=== PATIENT | female | born 1975 | race Two or more races ===

== ENCOUNTER → 2024-10-14 | Outpatient (BNVA) | payer MEDICAID, SELFPAY | END | disposition home or self-care (01) | PROVIDERS: PCP Nurse Practitioner Family; Referring Provider Nurse Practitioner Family; Visit Provider Nurse Practitioner Family | DX: N93.9 Abnormal uterine and vaginal bleeding, unspecified (principal); Z85.42 Personal history of malignant neoplasm of other parts of uterus | CPT/HCPCS: 99214 ==

== ENCOUNTER 2024-11-02 10:36 | Outpatient (AMB) | payer MEDICAID, SELFPAY ==
[2024-11-02 10:53] VITALS: BP 131/81; PULSE 61; RESP 14; TEMP 36.6; O2SAT 95; BMI 36.9
--- NOTE | 2024-11-02 10:53 | AMB.GYNCLNOT ---
Vital Signs 11/02/24 10:53 Height 1.58 m Height Method Stated Weight 92.249 kg Weight Measurement Method Standing Scale BMI 36.9 BP 131/81 H Blood Pressure Source Automatic Cuff Blood Pressure Location Left Upper Arm Position Sitting Respiration 14 Pulse 61 Pulse Source Monitor Temp 97.9 F Temp Source Oral Pulse Oximetry (%) 95 Oxygen Delivery Method Room Air Allergies/Home Meds Allergies & Medications Allergies No Known Allergies Allergy (Verified 11/02/24 10:55) Medication Reconciliation blood sugar diagnostic (True Metrix Glucose Test Strip) #100 ea 07/16/24 [Rx Confirmed 11/02/24] lancets 28 gauge (Comfort EZ Lancets) #100 ea 07/16/24 [Rx Confirmed 11/02/24] atorvastatin 10 mg tablet 10 mg PO QDAY #90 tabs 10/13/24 [Rx Confirmed 11/02/24] enalapril maleate 10 mg tablet 10 mg PO QDAY #90 tabs 10/13/24 [Rx Confirmed 11/02/24] ezetimibe 10 mg tablet 10 mg PO QDAY #90 tabs 10/13/24 [Rx Confirmed 11/02/24] hydrochlorothiazide 12.5 mg capsule 12.5 mg PO QAM #90 caps 10/13/24 [Rx Confirmed 11/02/24] sitagliptin phosphate 100 mg tablet (Januvia) 100 mg PO QDAY #90 tabs 10/13/24 [Rx Confirmed 11/02/24] Intake Visit Data Collection New Patient or Established: Established Patient (seen at [facility] within 3 years) Reason for Visit:: Pelvic Exam Seen by Clinical Staff ONLY (RN/MA): No Teletype Clerk Required: Yes Teletype Clerk's name/title: Jessica Fierro Do You Feel Safe at Home: Yes Authorities Contacted: N/A PCP or OBGYN visit in last 3 months: No Hx Now: No Are you currently on any form of Control: No Pain Present Currently: No Pain Scale Used: [place]/Numerical Pain scale:: 0 Smoking Status Smoking Status: Never smoker 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 1. Little interest or pleasure in doing things: not at all 2. Feeling down, depressed, or hopeless: not at all Total score: 0 PHQ-9 3. Trouble falling or staying asleep, or sleeping too much: Not at all 4. Feeling tired or having little energy: Not at all 5. Poor appetite or overeating: Not at all 6. Feeling bad about yourself - or that you are a failure or have let yourself or your family down: Not at all 7. Trouble concentrating on things, such as reading the newspaper or watching television: Not at all 8. Moving or speaking so slowly that other people could have noticed? - Or the opposite - being so fidgety or restless that you have been moving around a lot more than usual: not at all 9. Thoughts that you would be better off or of hurting yourself in some way: Not at all Total score: 0 Source: Developed by Drs. Phillip Muñoz, Prudence Regan, Kwame Hoffman and colleagues, with an educational loren from [employer] (T/A). Depression screen completed yes Social History Living Situation History Marital Status: Lives With: Family Housing: House Tobacco History Smoking Status: Never smoker Second Hand Smoke Exposure: No Alcohol History Alcohol Intake: Never Substance Use History Substance Use: PT DENIES SUBSTANCE USE. Domestic Abuse History Do You Feel Safe at Home: Yes Past Medical History Past Medical History Have you ever been diagnosed with any of the following: Neurological Problems Cerebrovascular Accident (CVA): No Transient Ischemic Attacks (TIA): No Dementia: No Alzheimer's Disease: No Parkinson's Disease: No Brain Tumor: No Meningitis: No Seizures: No Cardiology Problems Myocardial Infarction: No Cardiac Arrhythmia: No Atrial Fibrillation: No Angina: No Heart Murmur: No Coronary Artery Disease: No Atherosclerotic Heart Disease: No Peripheral Vascular Disease: No Hypercholesterolemia: Yes Aneurysm: No Congestive Heart Failure: No Congenital Heart Disease: No Valvular Heart Disease: No Rheumatic Fever: No Cardiomyopathy: No Edema: No Pericarditis: No Hypertension: Yes Hypotension: No Respiratory Problems Chronic Obstructive Pulmonary Disease (COPD): No Asthma: No Bronchitis: No Emphysema: No Pneumonia: No Pulmonary Fibrosis: No Tuberculosis: No Pulmonary Embolism: No Pulmonary Edema: No Sleep Apnea: No CPAP Dependent: No Respiratory Aspiration: No Dyspnea: No Orthopnea: No Hx Cough: No Cough: No Wheezing: No Chest Deformities: No Smoking: No Smoking Cessation Counseling: No Smoking Exposure: No Tobacco Use: No Clubbing: No Exposure to Respiratory Irritants: No Intubation: No Stomache/Intestinal Problems Liver Cancer: No Hepatitis: No Cirrhosis: No Pancreatic Cancer: No Pancreatitis: No Celiac Disease: No Gall Bladder Disease: No Gastrointestinal Bleed: No Esophageal Varices: No Genital/Urinary Problems Chronic Kidney Disease: No Renal Disease: No Kidney Stones: No Polycystic Kidney Disease: No Neurogenic Bladder: No Inguinal Hernia: No Dialysis: No Reproductive Problems Breast Cancer: No Endometriosis: No Fibroids: No Genital Herpes: No Gonorrhea: No Pelvic Inflammatory Disease: No Polycystic Ovarian Syndrome: No Previous Pregnancies: Yes Syphilis: No Musculoskeletal Problems Muscular Dystrophy: No Myasthenia Gravis: No Marfan's Syndrome: No Bone Cancer: No Head,Eye,Nose,Throat Problems Cataracts: No Glaucoma: No Blind: No Endocrine Problems Diabetes Mellitus Type 1: No Diabetes Mellitus Type 2: Yes Hypoglycemia: No Andre's Syndrome: No [place]'s Disease: No Thyroid Cancer: No Parathyroid Disease: No Pituitary Disease: No Systemic Lupus Erythematosus: No Syndrome of Inappropriate Antidiuretic Hormone: No Adrenal Disease: No Graves' Disease: No Blood Problems Anemia: No Leukemia: No Hemophilia: No Thalassemia: No Sickle Cell Disease: No Clotting Problems: No Psychologic Problems Schizophrenia: No Recreational Drug Use: No Bipolar Disorder: No Depression: No Anxiety: No Behavior Problems: No Self-Mutilation: No Attention Deficit Disorder: No Attention Deficit Hyperactivity Disorder: No Depression: No Post Traumatic Stress Disorder: No Eating Disorder: No Other Problems Hospitalization: No Autoimmune Disease: No Down Syndrome: No Autism: No Developmental Delay: No Cosmetic Surgery: No Shingles: No Falls: No Blood Transfusions: No Blood Transfusion Reaction: No Anesthesia Reactions: No Organ Transplant: No Chemotherapy: No Cancer: Yes Surgical History Hysterectomy: Yes History of Present Illness HPI Narrative 49-year-old female presents for a follow-up visit with a history of type 2 diabetes mellitus, hyperlipidemia, hypertension, and 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 She has no new complaints today. The patient has a history of endometrial adenocarcinoma for which she underwent surgery in 2020. She denies any bleeding, pain, or bulging sensations in the past year and confirms she is no longer seeing the specialist doctor. Patient reports a change in color and sensation around the area of a previous breast lesion. She describes feeling pulling and itching in the area, which was previously biopsied and treated for infection. The patient confirms the infection is healing and was advised to keep the area moist to aid in the healing process. 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 Review of systems reveals no genitourinary issues such as bleeding, pain, or bulging. She reports no bladder problems or constipation. The patient notes a change of color in the breast area and a feeling of pulling and itching in the breast area. Review of Systems Review of Systems Systems Reviewed: All systems reviewed, normal except as documented Exam General Limitations: no limitations General Appearance: alert, in no apparent distress, comfortable, cooperative, healthy appearing, well developed and well groomed Head Head exam: atraumatic, normocephalic and normal inspection Eye Eye exam: Present normal appearance, PERRL and EOMI ENT ENT exam: Present normal exam, normal oropharynx and mucous membranes moist Neck Neck exam: Present normal inspection, full ROM and trachea midline Chest Chest inspection: Present normal inspection, symmetric chest wall rise and other (Right Breast area of healing induration/ abscess noted) Resp Respiratory exam: Present normal lung sounds bilaterally Card Cardiovascular exam: Present regular rate, normal rhythm and normal heart sounds Abdominal Abdominal exam: Present soft and normal bowel sounds External exam: Present normal external exam Speculum exam: Present normal speculum exam Bimanual exam: Present other (BImanual Exam c/w hysterectomy status. No pelvic or adenexal masses palpated) Extremities Extremities exam: Present normal inspection and full ROM Back Back exam: Present normal inspection and full ROM Neuro Neurological exam: Present alert, oriented X3 and CN II-XII intact Psych Psychiatric exam: Present normal affect and normal mood Skin Skin exam: Present warm, dry, intact and normal color Assessment & Plan Diagnosis / Problem List (1) Adenocarcinoma of endometrium, stage 2: Status: Resolved Plan: - 49-year-old female with history of endometrial adenocarcinoma. - Hysterectomy in 2020 due to osseous metastatic disease. - No longer following up with specialist. - No new complaints reported. - Pelvic exam normal. - Continue routine follow-up. - Monitor for signs of recurrence (bleeding or pain). (2) Hyperlipidemia: Status: Chronic Qualifiers: Hyperlipidemia type: unspecified Qualified Code(s): E78.5 - Hyperlipidemia, unspecified Plan: Continue care w/PCP (3) Diabetes mellitus type 2, controlled, without complications: Status: Chronic Qualifiers: Diabetes mellitus meterman insulin use: without prison use Qualified Code(s): E11.9 - Type 2 diabetes mellitus without complications Plan: Continue care w/PCP (4) Abscess of right breast: Status: Acute Plan: - Change in color of previously biopsied breast lesion reported. - Area appears improved on examination. - Assessed as infection rather than cancer, healing noted. - Normal healing sensations (pulling and itching) experienced. - Keep affected area moist to promote healing. - Monitor for changes or worsening symptoms. - Continue with previously scheduled follow-ups. Additional Plan Follow Up: 1 Year (Endometrial cancer surveillance) Office Procedures OB Clinic LOC & Office Proc's Nursing/Assessment Patient Status: Initial/New Patient OB Clinic Nursing Assessment: Medication Reconciliation, Update PMH in EMR and Vital Signs OB Clinic Coordination of Care: Complex Care and Chronic Disease 1-5, Consent,records obtained, informed consent, Education Simp Pt/Fam and Staff clarify orders Miscellaneous Interventions: Pelvic no cultures New Patient Charge New Patient Point Assignment: [id number] New Patient Point Charge: LABOR RELATIONS REPRESENTATIVE Level 4 ([id number])
== END 2024-11-02 11:28 | disposition home or self-care (01) ==
LOC: HODSOBC 10:36
PROVIDERS: PCP Nurse Practitioner Family; Supervising Provider Obstetrics & Gynecology; Visit Provider Obstetrics & Gynecology
DX: N61.1 Abscess of the breast and nipple (principal); Z85.89 Personal history of malignant neoplasm of other organs and systems; E11.9 Type 2 diabetes mellitus without complications; E78.5 Hyperlipidemia, unspecified
CPT/HCPCS: 99204; 99213; G0463

== ENCOUNTER 2024-11-04 10:00 | Outpatient (RCR) | payer MEDICAID, SELFPAY ==
--- NOTE | 2024-10-21 10:35 | PT.OIERPT ---
PT OP Initial Eval Patient Information Outpatient Physical Therapy Treatment Date: 10/21/24 Visit Reasons: Lumbar region Medical Diagnosis: M51.26 M53.3 Treatment Dx #1: LBP with radiculopathy Start of Care: 10/21/24 Date of Onset: 2 yrs ago Smoking Status Smoking Status: Never smoker Initial Assessment Subjective: Pt is 49 yr old citizen of [place] speaking female who reports LBP x2 yrs. Increased pain with turning in bed, standing after sitting, and bending. She is not working at this time. She does HH chores and walks for exercise. Sometimes the pain radiates into the LE's. PMH: hysterectomy, HTN, DM Imaging: MRI of L/S in EMR L4-L5 4 mm central lumbar disc bulge Pt goal: to get rid of this LBP Objective: Trunk ArOM: ? B SB 50% of normal with pain to L ? Extension: 20% with pain around L4-5, L5-S1 ? Flexion: 10 from floor with LBP ? B rotation: 60% with pain to the L ? R SLR ROM: 45 deg. L SLR: 50 deg with posterior knee neural tension, LBP ? TTP: moderate paraspinals L5-S1 ? Neuro: B SLR: positive Assessment: Pt presents with trunk flexion sensitivity and overlying myofascial pain ? and TTP around L5-S1 consistent with ? lower lumbar disc bulge(s) with radiculopathy. Pt requires skilled therapy in order to decrease ? pain and improve sitting/standing tolerance and has fair rehab potential. Eval ?followed by HEP printout. 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 Ind with HEP ? 2. Improved sitting tolerance to 30 minutes with <=3/10 LBP ? 3. Decreased lower paraspinal TTP from mod to min 4. Improved standing after sitting tolerance x5 with <=3/10 LBP and no ?increase in LE ssx Treatment Plan 1. Manual therapy ? 2. Therex ? 3. Modalities as indicated, moist heat, ice, estim, mechanical traction Frequency and Duration: 1-2x a week for 12 visits plus evaluation Certification Dates: 10/21/24 to 01/16/25 Procedure Charges OP PT Eval Mod Complex 30 minutes: Yes
--- NOTE | 2024-10-27 09:27 | PT.ODAYNRPT ---
PT Outpatient Daily Note OP Daily Note Outpatient Physical Therapy Treatment Date: 10/27/24 Visit Reasons: Lumbar region Subjective: Low pain until yesterday she felt increased LBP Objective: See F/S for therex MT: STM L/S with flexbar x7' Assessment: Low pain with trunk extension progression Plan: Continue per POC Length of Time (minutes) of Treatment: 30 Minutes Procedure Charges Therapeutic Exercise 30 minutes: Yes
--- NOTE | 2024-11-01 10:18 | PT.ODAYNRPT ---
PT Outpatient Daily Note OP Daily Note Outpatient Physical Therapy Treatment Date: 11/01/24 Visit Reasons: Lumbar region Subjective: Less LBP since last visit Objective: See F/S for therex MT: [facility] L/S with flexbar x7' Assessment: Low pain with trunk extension progression Plan: Continue per POC Length of Time (minutes) of Treatment: 30 Minutes Procedure Charges Therapeutic Exercise 30 minutes: Yes
--- NOTE | 2024-11-04 10:47 | PT.ODAYNRPT ---
PT Outpatient Daily Note OP Daily Note Outpatient Physical Therapy Treatment Date: 11/04/24 Visit Reasons: Lumbar region Subjective: Pt reports low back has been feeling better since starting PT. Objective: Please see flow sheet for ther ex list. Assessment: Pt able to replicate repeated lumbar extension with good technique, response with decrease LBP. Plan: Continue with POc. Length of Time (minutes) of Treatment: 30 Minutes Procedure Charges Therapeutic Exercise 30 minutes: Yes
== END 2024-11-05 23:59 | disposition home or self-care (01) ==
LOC: CPTX 10:00
PROVIDERS: PCP Nurse Practitioner Family; Referring Provider Nurse Practitioner Family; Visit Provider Nurse Practitioner Family
DX: M51.16 Intervertebral disc disorders with radiculopathy, lumbar region (principal); M53.3 Sacrococcygeal disorders, not elsewhere classified; I10 Essential (primary) hypertension; E11.9 Type 2 diabetes mellitus without complications
CPT/HCPCS: 97110; 97162

== ENCOUNTER → 2024-11-18 | Outpatient (BNVA) | payer MEDICAID, SELFPAY | END | disposition home or self-care (01) | PROVIDERS: PCP Nurse Practitioner Family; Referring Provider Nurse Practitioner Family; Visit Provider Nurse Practitioner Family | DX: Z71.2 Person consulting for explanation of examination or test findings (principal); E11.9 Type 2 diabetes mellitus without complications; E78.5 Hyperlipidemia, unspecified; I10 Essential (primary) hypertension; C54.1 Malignant neoplasm of endometrium; Z12.11 Encounter for screening for malignant neoplasm of colon | CPT/HCPCS: 99214 ==

== ENCOUNTER 2024-11-22 08:00 | Outpatient (RCR) | payer MEDICAID, SELFPAY ==
--- NOTE | 2024-11-10 09:29 | PT.ODAYNRPT ---
PT Outpatient Daily Note OP Daily Note Outpatient Physical Therapy Treatment Date: 11/10/24 Visit Reasons: Lumbar Region Subjective: Pt reports progress with back symptoms. Objective: Please see flow sheet for ther ex list. Assessment: Pt tolerated STM to l/s with good tolerance. Plan: Continue with pOC. Length of Time (minutes) of Treatment: 30 Minutes Procedure Charges Therapeutic Exercise 30 minutes: Yes
--- NOTE | 2024-11-17 09:34 | PT.ODAYNRPT ---
PT Outpatient Daily Note OP Daily Note Outpatient Physical Therapy Treatment Date: 11/17/24 Visit Reasons: Lumbar Region Subjective: Pt reports progress with symptoms, would like to be discharged from PT next session. Pt reports compliance with HEP. Objective: Please see flow sheet for ther ex list. Assessment: Pt able to replicate prone on elbows exercise with good technique indicating compliance with HEP. Plan: Assess for DC note. Length of Time (minutes) of Treatment: 30 Minutes Procedure Charges Therapeutic Exercise 30 minutes: Yes
--- NOTE | 2024-11-22 08:48 | PT.ODS1RPT ---
PT OP Progress/Discharge Note Date of Service: 11/22/24 Progress Note/DC Note Progress Note/Discharge Note: DC Note Patient Information Visit Reasons: Lumbar Region Service Continue Service or Discharge: Discharge Status Subjective: Pt reports her LB hasn't been hurting with walking or HH chores and she is ready to be done with therapy and continue at home. Objective: Trunk AROM Extension: 50% without pain Flexion: 8 without pain Rotation: 80% of full without pain TTP: min to none of lumbar paraspinals Mechanical traction L/S x7' at 40 lbs Assessment: Pt has attended the eval and 6 Rx sessions with good progress and has met therapy goals. She is not having pain with walking or HH chores to meet those goals. Pt is independent with HEP to meet that goal. She was encouraged to Plan: D/C with HEP. Procedure Charges Therapeutic Exercise 30 minutes: Yes
== END 2024-12-06 23:59 | disposition home or self-care (01) ==
LOC: CPTX 08:00
PROVIDERS: PCP Nurse Practitioner Family; Referring Provider Nurse Practitioner Family; Visit Provider Nurse Practitioner Family
DX: M54.16 Radiculopathy, lumbar region (principal); M51.26 Other intervertebral disc displacement, lumbar region; M53.3 Sacrococcygeal disorders, not elsewhere classified; I10 Essential (primary) hypertension; E11.9 Type 2 diabetes mellitus without complications
CPT/HCPCS: 97110

== ENCOUNTER → 2025-02-11 | Outpatient (BNVA) | payer MEDICAID, SELFPAY | END | disposition home or self-care (01) | PROVIDERS: PCP Nurse Practitioner Family; Referring Provider Nurse Practitioner Family; Visit Provider Nurse Practitioner Family | DX: Z23 Encounter for immunization (principal) | CPT/HCPCS: 90471; 90677; 99213; G0009 ==

== ENCOUNTER → 2025-03-04 | Outpatient (BNVA) | payer MEDICAID, SELFPAY | END | disposition home or self-care (01) | PROVIDERS: PCP Nurse Practitioner Family; Referring Provider Nurse Practitioner Family; Visit Provider Nurse Practitioner Family | DX: Z12.31 Encounter for screening mammogram for malignant neoplasm of breast (principal) | CPT/HCPCS: 99214 ==

== ENCOUNTER → 2025-03-10 | Outpatient (CLI) | payer MEDICAID, SELFPAY ==
--- NOTE | 2025-03-10 09:45 | XR_ITS ---
Examination: Screening digital mammography, bilateral Computer aided detection 3-D breast Tomosynthesis, bilateral Date and time of exam: March 10, 2025 0933 hours Compared to mammograms dating to January 26, 2021 Indication: Screening Technique: Nonmagnified MLO, CC views of the breasts to been obtained, reconstructed from 3-D Tomosynthesis images. R2 computer aided detection program utilized for evaluation of suspicious masses and/or abnormal calcifications. 3-D Tomosynthesis images obtained. Findings: Scattered areas of fibroglandular density Benign calcifications. 4 mm focal asymmetry 12:00 position left breast IMPRESSION: BI-RADS Category 0: Incomplete: Need additional imaging evaluation Recommend follow-up spot tomographic views of 14 mm focal asymmetry 12:00 position left breast as well as left breast sonography to complete the workup
== END | disposition home or self-care (01) ==
LOC: CDIM 09:29
PROVIDERS: PCP Nurse Practitioner Family; Referring Provider Nurse Practitioner Family; Visit Provider Nurse Practitioner Family
DX: Z12.31 Encounter for screening mammogram for malignant neoplasm of breast (principal); N64.89 Other specified disorders of breast
CPT/HCPCS: 77063; 77067

== ENCOUNTER → 2025-03-14 | Outpatient (BNVA) | payer MEDICAID, SELFPAY | END | disposition home or self-care (01) | PROVIDERS: PCP Nurse Practitioner Family; Referring Provider Nurse Practitioner Family; Visit Provider Nurse Practitioner Primary Care | DX: L29.9 Pruritus, unspecified (principal) | CPT/HCPCS: 99213 ==

== ENCOUNTER → 2025-03-17 | Outpatient (BNVA) | payer MEDICAID, SELFPAY | END | disposition home or self-care (01) | PROVIDERS: PCP Nurse Practitioner Family; Referring Provider Nurse Practitioner Family; Visit Provider Nurse Practitioner Family | DX: R92.8 Other abnormal and inconclusive findings on diagnostic imaging of breast (principal); Z71.2 Person consulting for explanation of examination or test findings | CPT/HCPCS: 99212; G0463 ==

== ENCOUNTER → 2025-03-21 | Outpatient (BNVA) | payer MEDICAID, SELFPAY | END | disposition home or self-care (01) | PROVIDERS: PCP Nurse Practitioner Family; Referring Provider Nurse Practitioner Family; Visit Provider Nurse Practitioner Family | DX: T78.40XA Allergy, unspecified, initial encounter (principal) | CPT/HCPCS: 99214 ==

== ENCOUNTER → 2025-04-04 | Outpatient (BNVA) | payer MEDICAID, SELFPAY | END | disposition home or self-care (01) | PROVIDERS: PCP Nurse Practitioner Family; Referring Provider Nurse Practitioner Family; Visit Provider Nurse Practitioner Family | DX: Z71.2 Person consulting for explanation of examination or test findings (principal); T78.40XA Allergy, unspecified, initial encounter | CPT/HCPCS: 99212; G0463 ==

== ENCOUNTER → 2025-04-29 | Outpatient (BNVA) | payer MEDICAID, SELFPAY | END | disposition home or self-care (01) | PROVIDERS: PCP Nurse Practitioner Family; Referring Provider Nurse Practitioner Family; Visit Provider Nurse Practitioner Family | DX: Z00.01 Encounter for general adult medical examination with abnormal findings (principal); E11.9 Type 2 diabetes mellitus without complications; E78.5 Hyperlipidemia, unspecified; I10 Essential (primary) hypertension; E66.9 Obesity, unspecified; Z68.37 Body mass index [BMI] 37.0-37.9, adult; Z11.3 Encounter for screening for infections with a predominantly sexual mode of transmission; K02.9 Dental caries, unspecified; Z71.85 Encounter for immunization safety counseling; T78.40XA Allergy, unspecified, initial encounter; N64.4 Mastodynia | CPT/HCPCS: 93005; 99173; 99215 ==

== ENCOUNTER → 2025-05-05 | Outpatient (BNVA) | payer MEDICAID, SELFPAY | END | disposition home or self-care (01) | PROVIDERS: PCP Nurse Practitioner Family; Referring Provider Nurse Practitioner Family; Visit Provider Nurse Practitioner Family | DX: Z71.2 Person consulting for explanation of examination or test findings (principal); E11.9 Type 2 diabetes mellitus without complications; E78.5 Hyperlipidemia, unspecified; I10 Essential (primary) hypertension; N39.0 Urinary tract infection, site not specified | CPT/HCPCS: 99212; G0463 ==

== ENCOUNTER → 2025-05-24 | Outpatient (CLI) | payer MEDICAID, SELFPAY ==
--- NOTE | 2025-05-24 11:15 | XR_ITS ---
Examination: Breast ultrasound, unilateral, left Date and time of exam: May 24, 2025 1030 hours INDICATIONS: Mammogram March 10, 2025 4 mm focal asymmetry 12:00 position left breast Technique: Real-time ruiz scale ultrasonographic imaging performed left breast including all 4 quadrants as well as nipple retroareolar and axillary region. Findings: No cystic or solid mass IMPRESSION: BI-RADS Category 1: Negative studies
--- NOTE | 2025-05-24 11:45 | XR_ITS ---
Examination: Diagnostic digital mammography, unilateral, left Computer aided detection 3-D breast Tomosynthesis, unilateral Date and time of exam: May 24, 2025 10:50 AM INDICATIONS: Mammogram March 10, 2025 4 mm focal asymmetry 12:00 position left breast Technique: Nonmagnified MLO, CC views of the left breast have been obtained, reconstructed from 3-D Tomosynthesis images. R2 computer aided detection program utilized for evaluation of suspicious masses and/or abnormal calcifications. 3-D Tomosynthesis images obtained. Findings: Scattered areas of fibroglandular density. Stable focal asymmetry 12:00 position left breast Impression: BI-RADS category 3: Probably benign findings Recommend 1 additional 6 month left mammogram follow-up
== END | disposition home or self-care (01) ==
LOC: CDIM 10:26
PROVIDERS: PCP Nurse Practitioner Family; Referring Provider Nurse Practitioner Family; Visit Provider Nurse Practitioner Family
DX: R92.332 Mammographic heterogeneous density, left breast (principal); N64.89 Other specified disorders of breast
CPT/HCPCS: 76641; 77061; 77065; G0279

== ENCOUNTER → 2025-05-25 | Outpatient (BNVA) | payer MEDICAID, SELFPAY | END | disposition home or self-care (01) | PROVIDERS: PCP Nurse Practitioner Family; Referring Provider Nurse Practitioner Family; Visit Provider Nurse Practitioner Family | DX: Z71.2 Person consulting for explanation of examination or test findings (principal); M79.672 Pain in left foot; R92.8 Other abnormal and inconclusive findings on diagnostic imaging of breast; N64.4 Mastodynia | CPT/HCPCS: 96372; 99214; J1885 ==

== ENCOUNTER → 2025-05-26 | Outpatient (CLI) | payer MEDICAID, SELFPAY ==
--- NOTE | 2025-05-26 14:38 | XR_ITS ---
Examination: Foot, left, 3 views Technique: AP, oblique, lateral views foot, 3 views Date and time of exam: May 26, 2025 1441 hours INDICATIONS: Left heel pain beginning 2 weeks ago. FINDINGS: No acute fracture Mild narrowing first metatarsophalangeal joint. 2 mm plantar bony calcaneal spur. No cortical bone destruction IMPRESSION: 2 mm plantar bony calcaneal spur
== END | disposition home or self-care (01) ==
PROVIDERS: PCP Nurse Practitioner Family; Referring Provider Nurse Practitioner Family; Visit Provider Nurse Practitioner Family
DX: M77.32 Calcaneal spur, left foot (principal)
CPT/HCPCS: 73630

== ENCOUNTER → 2025-05-31 | Outpatient (BNVA) | payer MEDICAID, SELFPAY | END | disposition home or self-care (01) | PROVIDERS: PCP Nurse Practitioner Family; Referring Provider Nurse Practitioner Family; Visit Provider Nurse Practitioner Family | DX: Z71.2 Person consulting for explanation of examination or test findings (principal); M25.572 Pain in left ankle and joints of left foot | CPT/HCPCS: 99214 ==

== ENCOUNTER → 2025-06-10 | Outpatient (BNVA) | payer MEDICAID, SELFPAY | END | disposition home or self-care (01) | PROVIDERS: PCP Nurse Practitioner Family; Referring Provider Nurse Practitioner Family; Visit Provider Nurse Practitioner Family | DX: Z23 Encounter for immunization (principal) | CPT/HCPCS: 90471; 90686; 99213 ==

== ENCOUNTER → 2025-07-07 | Outpatient (BNVA) | payer MEDICAID, SELFPAY | END | disposition home or self-care (01) | PROVIDERS: PCP Nurse Practitioner Family; Referring Provider Nurse Practitioner Family; Visit Provider Nurse Practitioner Family | DX: E11.9 Type 2 diabetes mellitus without complications (principal); E66.9 Obesity, unspecified; Z68.37 Body mass index [BMI] 37.0-37.9, adult | CPT/HCPCS: 99214 ==